=== PATIENT | female | born 1975 | race Caucasian/White ===

== ENCOUNTER 2019-01-04 21:42 | Observation (INO) | payer MEDICAID ==
[2019-01-04] MEDS ORDERED: MAG HYDROX/AL HYDROX/SIMETH SUSP 30 ML UDCUP PO ONE (22:46)
[2019-01-04] MEDS ORDERED: LIDOCAINE 2% VISCOUS SOLN 20 ML UDCUP PO ONE (22:46)
[2019-01-04] MEDS ORDERED: METOCLOPRAMIDE HCL ORAL SOLN 10 MG/10 ML UDCUP PO ONE (22:46)
[2019-01-04] MEDS ORDERED: ONDANSETRON 4 MG TAB.RAPDIS PO ONE (22:46)
--- NOTE | 2019-01-04 22:54 | ER Document Report ---
ED Medical Screen (RME) - General Chief Complaint: Abdominal Cramping Stated Complaint: ABDOMINAL PAIN Time Seen by Provider: 01/04/19 22:41 Primary Care Provider: FLORENCIO ONEAL PA-C [Primary Care Provider] - Follow up as needed Mode of Arrival: Medic Information source: Patient Notes: This 43-year-old female presents to the emergency department EMS for acute onset abdominal pain. Reports she was in the bathroom and all of a sudden her abdomen started hurting. She reports she became very nauseated did not vomit. She reports she hurt so bad they had called EMS to get her off the floor. Denies past medical history of any abdominal illnesses. Denies trauma. Denies pain with void. Denies fever vomiting. Reports last bowel movement was during this episode. It did not relieve her abdominal pain. Patient complains of epigastric pain tender to palpation. I have greeted and performed a rapid initial assessment of this patient. A comprehensive ED assessment and evaluation of the patient, analysis of test results and completion of the medical decision making process will be conducted by additional ED providers. Dictation of this chart was performed using voice recognition software; therefore, there may be some unintended grammatical errors. TRAVEL OUTSIDE OF THE [place] IN LAST 30 DAYS: No Physical Exam - Vital signs Vitals: Pulse Resp BP Pulse Ox 80 18 129/83 H 100 01/04/19 21:47 01/04/19 21:47 01/04/19 21:47 01/04/19 21:47 Course - Vital Signs Vital signs: Temp Pulse Resp BP Pulse Ox 80 18 129/83 H 100 01/04/19 21:47 01/04/19 21:47 01/04/19 21:47 01/04/19 21:47 Doctor's Discharge - Discharge Referrals: FLORENCIO ONEAL PA-C [Primary Care Provider] - Follow up as needed
--- NOTE | 2019-01-04 23:13 | ER Document Report ---
HPI - HPI Patient complains to provider of: Epigastric abdominal pain Time Seen by Provider: 01/04/19 22:41 Onset: This evening Onset/Duration: Persistent Quality of pain: Burning Severity: Moderate Pain Level: 4 Context: 43 yr old female patient, with the listed pmh, here for epigastric abdominal pain x 1 day. 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 a few episodes of nonbloody nonbilious vomiting and states she can't keep anything down. No abdominal surgeries other than a remote tubal ligation. No history of ovarian cysts, fibroids, endometriosis, or renal stones. Normal bowel movements. No UTI symptoms. No URI symptoms. No recent antibiotics or steroids. No history of diabetes or asthma. No vaginal discharge/complaints/lesions or concerns for STDs and does not want a pelvic exam. No ripping or tearing sensation. Hasn't taken anything for her symptoms. No excessive NSAID use, Tylenol use, or EtOH. No prior history of gallbladder disease, pancreatitis, ulcers, GI bleed, IBS, Crohn's, or UC. no change in color or caliber or stool. no blood thinners. no fall or trauma. denies . no other associated sx. last po intake was 830pm Exacerbated by: Food Relieved by: Remaining still Similar symptoms previously: No Recently seen / treated by doctor: No - ROS Systems Reviewed and Negative: Yes All other systems reviewed and negative - To include 10 systems, unless mentioned in the hpi. - REPRODUCTIVE Reproductive: DENIES: : Past Medical History - General Information source: Patient - Social History Smoking Status: Unknown if Ever Smoked Frequency of alcohol use: Rare Drug Abuse: None Lives with: Spouse/Significant other Family History: Reviewed & Not Pertinent Patient has suicidal ideation: No Patient has homicidal ideation: No - Past Medical History Cardiac Medical History: Reports: Hx Hypertension Endocrine Medical History: Reports: None Past Surgical History: Reports: Hx Tubal Ligation - Immunizations Immunizations up to date: Yes Vertical Provider Document - CONSTITUTIONAL Agree With Documented VS: Yes Exam Limitations: No Limitations Notes: >>>> PHYSICAL_EXAM: GENERAL_APPEARANCE: well_nourished, alert, cooperative, no_acute_distress, mild_obvious_discomfort. Pleasant, obese middle aged female, smiling, speaking in full sentences, in no sign of pain or resp distress, easily sitting up, at bedside VITALS: reviewed, see vital signs table. HEAD: normocephalic, atraumatic. no hoff signs. no raccoon eyes. EYES: PERRL, EOMI, (-)scleral icterus. NOSE: no_nasal_discharge. MOUTH: (-)decreased moisture. THROAT: no_tonsilar_inflammation/hypertrophy/exudate NECK: supple, no_neck_tenderness, full rom. full strength. no meningeal signs. BACK: no midline_back_tenderness. no step offs or deformities CHEST_WALL: no_chest_tenderness. LUNGS: no_wheezing, (-)accessory muscle use, good air exchange bilateral. HEART: normal_rate, normal_rhythm, ABDOMEN: normal_BS, soft, abdomen-diffuse, mild-mod ttp in the epigastrium and ruq, obese abd exam somewhat limited due to body habitus, (-)guarding, (- )rebound, no distension or peritoneal signs. questionably pos murphys. neg mcburneys. no cva tenderness. neg heel strike. neg obturator. neg psoas. neg rovsign. RECTAL: deferred EXTREMITIES: strength 5/5 in all_extremities, good pulses in all_extremities, no_edema, no_swelling\tenderness. full rom. normal gait. 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 SKIN: warm, dry, good_color, no_rash. no grossly visible overlying skin changes to suggest trauma NEURO: motor_intact, sensory_intact. MENTAL_STATUS: normal_affect, speech_clear, oriented_X_3, responds_appropriately to questions. - INFECTION CONTROL TRAVEL OUTSIDE OF THE [place] IN LAST 30 DAYS: No Course - Re-evaluation Re-evalutation: 01/04/19 23:12 Pt here for ruq and epigastric pain after eating chips and salsa tonight. hx of this before in the pat however it just resolved on its own. tonight it persisted more so she came in. labs neg other than a white count, mildly elevated ast, normal lactic. ucx pending. keg unremarkable per dr mckenna. triage kub and cxr neg per rad and reviewed by myself. gb us done that showed Cholelithiasis and a mildly dilated common bile duct measures 0.7 cm in diameter. No intrahepatic ductal dilation, hepatosteatosis but was otherwise neg per rad and reviewed by myself. case discussed with dr mckenna, ed attending, who advised to get a ct scan with iv only contrast of her abd/pelv which was neg per rad and reviewed by myself. pt informed of findings. advised sx care. case then discussed with infection control coordinator surg, dr aggarwal, who came down to the ed and accepted the pt to his service. please refer to his note for further details of this trainaing.t. On reexam, pt improved minimally with tx listed. remained stable. nontoxic. well appearing. serial abd exams remain benign Documentation achieved through voice recording which may lead to some occasional accidental typographical errors. Extensive efforts have been made to proof read documentation to make sure these are the least as possible. 01/05/19 06:36 Category Date Time Status EKG Documentation STAT Care 01/04/19 23:09 Completed EKG Documentation STAT Care 01/04/19 23:09 Completed NPO (ED) NOW Care 01/05/19 02:35 Ordered CHEST 2 VIEWS [RAD] Stat Exams 01/04/19 23:[address] ABD/PELVIS WITH IV ONLY [CT] Stat Exams 01/05/19 02:32 Ordered Gallbladder Ultrasound [U/S ABDOMEN LIMITED W/O DOP] [ Exams 01/05/19 00:27 Ordered US] Stat KUB/ABDOMEN (SINGLE VIEW) [RAD] Stat Exams 01/04/19 22:54 Completed CBC WITH DIFF [HEME] Stat Lab 01/04/19 22:46 Ordered COMPREHENSIVE METABOLIC PANEL [CHEM] Stat Lab 01/04/19 22:46 Ordered HCG QUALITATIVE, URINE [URIN] Stat Lab 01/04/19 22:46 Uncollected LIPASE [CHEM] Stat Lab 01/04/19 22:46 Ordered TROPONIN I [CHEM] Stat Lab 01/04/19 23:11 Ordered URINALYSIS [URIN] Stat Lab 01/04/19 22:46 Uncollected Hydromorphone HCl/Pf [Dilaudid Inj/Pf 2 mg/ml Ampule] Med 01/05/19 03:43 Once 0.5 mg IV NOW ONE Lidocaine HCl [Xylocaine 2% Viscous Soln 20 ml Udcup] Med 01/04/19 22:46 Discontinued 15 ml PO NOW ONE Mag Hydrox/Al Hydrox/Simeth [Maalox Plus Susp 30 Udcup] Med 01/04/19 22:46 Discontinued 30 ml PO NOW ONE Metoclopramide HCl [Reglan Oral Soln 10 mg/10 ml Udcup] Med 01/04/19 22:46 Discontinued 10 mg PO NOW ONE Normal Saline 1000 ml [NaCl 0.9% 1000 ml IV Soln] 1,000 Med 01/05/19 02:32 Ordered ml IV BOLUS Ondansetron [Zofran Odt 4 mg Tablet] Med 01/04/19 22:46 Discontinued 4 mg PO NOW ONE Piperacillin Sodium/Tazobactam [Zosyn Inj 3.375 gm Vial Med 01/05/19 02:32 Once ] 3.375 gm IV IVBAG (ED) ONE EKG ER ONLY [ER] Stat Oth 01/04/19 Active - Vital Signs Vital signs: Temp Pulse Resp BP Pulse Ox 80 18 129/83 H 100 01/04/19 21:47 01/04/19 21:47 01/04/19 21:47 01/04/19 21:47 01/05/19 06:37 Temp Pulse Pulse Resp BP BP Pulse Ox 01/05/19 03:36 98.5 F 82 16 117/70 100 01/04/19 21:47 80 18 129/83 H 100 - Laboratory Result Diagrams: 01/05/19 01:37 01/05/19 01:37 Laboratory results interpreted by me: 01/05/19 04:44 Labs- Entire Visit 01/04/19 01/05/19 01/05/19 23:55 01:37 01:37 WBC 14.0 H RBC 4.26 Hgb 12.6 Hct 36.9 MCV 87 MCH 29.7 MCHC 34.2 RDW 13.1 Plt Count 283 Lymph % (Auto) 17.9 [place] % (Auto) 4.4 Eos % (Auto) 0.1 Baso % (Auto) 0.2 Absolute Neuts (auto) 10.8 H Absolute Lymphs (auto) 2.5 Absolute Monos (auto) 0.6 Absolute Eos (auto) 0.0 Absolute Basos (auto) 0.0 Seg Neutrophils % 77.4 Sodium 138.4 Potassium 4.2 Chloride 105 Carbon Dioxide 23 Anion Gap 10 BUN 15 Creatinine 0.68 Est GFR ( Amer) > 60 Est GFR (MDRD) Non-Af > 60 Glucose 140 H Calcium 9.6 Total Bilirubin 0.5 Direct Bilirubin 0.4 Neonat Total Bilirubin Not Reportable Neonat Direct Bilirubin Not Reportable Neonat Indirect Bili Not Reportable AST 214 H ALT 120 Alkaline Phosphatase 74 Troponin I Total Protein 6.7 Albumin 4.1 Lipase 164.4 Urine Color YELLOW Urine Appearance CLEAR Urine pH 6.0 Ur Specific [place] 1.012 Urine Protein NEGATIVE Urine Glucose (UA) NEGATIVE Urine Ketones NEGATIVE Urine Blood NEGATIVE Urine Nitrite NEGATIVE Urine Bilirubin NEGATIVE Urine Urobilinogen NEGATIVE Ur Leukocyte Esterase NEGATIVE Urine WBC (Auto) 0 Urine RBC (Auto) 0 Urine Bacteria (Auto) TRACE Squamous Epi Cells Auto 1 Urine Mucus (Auto) RARE Urine Ascorbic Acid NEGATIVE Urine HCG, Qual NEGATIVE 01/05/19 01:37 WBC RBC Hgb Hct MCV MCH MCHC RDW Plt Count Lymph % (Auto) [place] % (Auto) Eos % (Auto) Baso % (Auto) Absolute Neuts (auto) Absolute Lymphs (auto) Absolute Monos (auto) Absolute Eos (auto) Absolute Basos (auto) Seg Neutrophils % Sodium Potassium Chloride Carbon Dioxide Anion Gap BUN Creatinine Est GFR ( Amer) Est GFR (MDRD) Non-Af Glucose Calcium Total Bilirubin Direct Bilirubin Neonat Total Bilirubin Neonat Direct Bilirubin Neonat Indirect Bili AST ALT Alkaline Phosphatase Troponin I < 0.012 Total Protein Albumin Lipase Urine Color Urine Appearance Urine pH Ur Specific [place] Urine Protein Urine Glucose (UA) Urine Ketones Urine Blood Urine Nitrite Urine Bilirubin Urine Urobilinogen Ur Leukocyte Esterase Urine WBC (Auto) Urine RBC (Auto) Urine Bacteria (Auto) Squamous Epi Cells Auto Urine Mucus (Auto) Urine Ascorbic Acid Urine HCG, Qual - Diagnostic Test Radiology reviewed: Image reviewed, Reports reviewed Radiology results interpreted by me: 01/05/19 06:37 KUB X-Ray 01/04/19 22:54 IMPRESSION: No acute findings. Chest X-Ray 01/04/19 23:10 IMPRESSION: No acute cardiopulmonary abnormalities. copyright 2011 [employer]- All Rights Reserved Abdomen Ultrasound 01/05/19 00:27 IMPRESSION: 1. Cholelithiasis. Mildly dilated common bile duct measures 0.7 cm in diameter. No intrahepatic ductal dilation. 2. Hepatic steatosis. Abdomen/Pelvis CT 01/05/19 02:32 IMPRESSION: Probable mild left hydronephrosis and hydroureter with no clear obstructing lesion at this time. - EKG Interpretation by Tn EKG shows normal: Sinus rhythm - 79 bpm, no stemi, reviewed by dr elliott Rate: Normal Rhythm: NSR When compared to previous EKG there are: No significant change Discharge - Discharge Clinical Impression: Vomiting and diarrhea, Intractable pain, Hydroureter Cholelithiasis Qualifiers: Cholelithiasis location: other site Biliary obstruction: without biliary obstruction Qualified Code(s): K80.80 - Other cholelithiasis without obstruction Intractable vomiting Qualifiers: Vomiting type: unspecified Nausea presence: with nausea Qualified Code(s): R1 1.2 - Nausea with vomiting, unspecified Leukocytosis Qualifiers: Leukocytosis type: unspecified Qualified Code(s): D72.829 - Elevated white blood cell count, unspecified Hydronephrosis Qualifiers: Hydronephrosis type: unspecified Qualified Code(s): N13.30 - Unspecified hydronephrosis Condition: Good Disposition: ADMITTED INPATIENT Admitting Provider: Surgicalist - brenden- spoke with him at 6:10am who graciously came down to the ed to accept the pt for likely lap acacia
--- NOTE | 2019-01-04 23:31 | RADIOLOGY REPORT (SQ) ---
EXAM DESCRIPTION: XR ABDOMEN 1 VIEW (KUB) COMPLETED DATE/TME: 01/04/2019 22:54 CLINICAL HISTORY: 43 years Female, abd pain COMPARISON: None. NUMBER OF VIEWS/TECHNIQUE: 1 FINDINGS: Intestinal gas pattern is within normal limits. Paucity of bowel gas. Colonic stool retention. No suspicious calcification. Grossly intact skeletal structures. IMPRESSION: No acute findings.
--- NOTE | 2019-01-04 23:58 | RADIOLOGY REPORT (SQ) ---
EXAM DESCRIPTION: XR CHEST 2 VIEWS COMPLETED DATE/TME: 01/04/2019 23:10 CLINICAL HISTORY: 43 years, Female, epigastric pain COMPARISON: None. NUMBER OF VIEWS: 2 TECHNIQUE: Two views PA and lateral the chest were obtained. LIMITATIONS: None. FINDINGS: Unremarkable cardiac and mediastinal silhouette. Heart size is normal. Lungs are clear without focal opacity, pneumothorax or pleural effusions. The visualized bones are within normal limits. IMPRESSION: No acute cardiopulmonary abnormalities. copyright 2010 [employer]- All Rights Reserved
[2019-01-05 01:47] LABS: ABSOLUTE LYMPHOCYTES (AUTO) 2.5 10^3/uL (0.5-4.7); ABSOLUTE MONOCYTES (AUTO) 0.6 10^3/uL (0.1-1.4); ABSOLUTE NEUT (AUTO) 10.8 10^3/uL (1.7-8.2); BASOPHILS % (AUTO) 0.2 % (0-2); EOSINOPHILS % (AUTO) 0.1 % (0-6); HEMATOCRIT 36.9 % (36.0-47.0); HEMOGLOBIN 12.6 g/dL (12.0-15.5); LYMPHOCYTES % (AUTO) 17.9 % (13-45); MEAN CORPUSCULAR HEMOGLOBIN 29.7 pg (27.0-33.4); MEAN CORPUSCULAR HGB CONC 34.2 g/dL (32.0-36.0); MEAN CORPUSCULAR VOLUME 87 fl (80-97); MONOCYTES % (AUTO) 4.4 % (3-13); PLATELET COUNT 283 10^3/uL (150-450); RED BLOOD COUNT 4.26 10^6/uL (3.72-5.28); RED CELL DISTRIBUTION WIDTH 13.1 % (11.5-14.0); SEGMENTED NEUTROPHILS % (AUTO) 77.4 % (42-78); TOTAL CELLS COUNTED % (AUTO) 100 %
--- NOTE | 2019-01-05 01:49 | RADIOLOGY REPORT (SQ) ---
EXAM DESCRIPTION: US ABDOMEN LIMITED COMPLETED DATE/TME: 01/05/2019 00:27 CLINICAL HISTORY: 43 years Female, epigastric ruq pain Comparison: None. LIMITATIONS: Bowel gas and body habitus artifact. FINDINGS: Gallbladder, negative sonographic Cervantes's test, mild hepatic steatosis, a 0.7-cm diameter common bile duct, no intrahepatic ductal dilation, hepatopetal patent flow of the portal vein, x-cm right kidney, partially obscured pancreas, visualized vasculature/abdominal aorta, and no significant ascites appear otherwise unremarkable. IMPRESSION: 1. Cholelithiasis. Mildly dilated common bile duct measures 0.7 cm in diameter. No intrahepatic ductal dilation. 2. Hepatic steatosis.
[2019-01-05 02:02] LABS: ALBUMIN 4.1 g/dL (3.5-5.0); ALKALINE PHOSPHATASE 74 U/L (38-126); ANION GAP 10 (5-19); ASPARTATE AMINO TRANSFERASE 214 U/L (14-36); BILIRUBIN,DIRECT 0.4 mg/dL (0.0-0.4); BILIRUBIN,TOTAL 0.5 mg/dL (0.2-1.3); BLOOD UREA NITROGEN 15 mg/dL (7-20); CALCIUM 9.6 mg/dL (8.4-10.2); CARBON DIOXIDE 23 mmol/L (22-30); CHLORIDE 105 mmol/L (98-107); GLUCOSE 140 mg/dL (75-110); POTASSIUM 4.2 mmol/L (3.6-5.0); TOTAL PROTEIN 6.7 g/dL (6.3-8.2)
[2019-01-05] MEDS ORDERED: NORMAL SALINE 1000 ML 1,000 ML IV ONE ×2 (02:32→10:09)
[2019-01-05] MEDS ORDERED: PIPERACILLIN/TAZOBACTAM 3.375 GM VIAL IV ONE (02:32)
[2019-01-05] MEDS ORDERED: HYDROMORPHONE HCL INJ/PF 2 MG/ML AMPULE IV ONE (03:43)
[2019-01-05 04:21] LABS: APPEARANCE,URINE CLEAR; BILIRUBIN,URINE NEGATIVE (NEGATIVE); COLOR,URINE YELLOW; GLUCOSE, URINE NEGATIVE (NEGATIVE); KETONES,URINE NEGATIVE (NEGATIVE); LEUKOCYTE ESTERASE,URINE NEGATIVE (NEGATIVE); NITRITE,URINE NEGATIVE (NEGATIVE); PROTEIN,URINE NEGATIVE (NEGATIVE); URINE SPECIFIC GRAVITY 1.012; UROBILINOGEN,URINE NEGATIVE mg/dL (<2.0)
--- NOTE | 2019-01-05 05:49 | RADIOLOGY REPORT (SQ) ---
CLINICAL HISTORY: EPIGASTRIC PAIN S/P EATING CHIPS/SALSA gallstone,Hepatic steatosis on U/S COMPARISON: None. TECHNIQUE: CT ABDOMEN PELVIS WITH IV CONTRAST on 01/05/2019 2:32 AM CDT This exam was performed according to our departmental dose-optimization program, which includes automated exposure control, adjustment of the mA and/or kV according to patient size and/or use of iterative reconstruction technique. FINDINGS: Lower lungs are clear. Abdomen: The liver is normal in appearance. There is no biliary dilatation. Gallbladder contains layering sludge. The pancreas and spleen are normal in appearance. Adrenal glands are normal. Calcifications within both kidneys may relate to medullary nephrocalcinosis, although some of the hypodensities may represent contrast material. There is mild left hydronephrosis and hydroureter with no clear obstructing lesions. Abdominal aorta is normal in course and caliber without aneurysm. There is no free air. There is no retroperitoneal adenopathy. Pelvis: There is no bowel obstruction. Urinary bladder is unremarkable. There is no free fluid. Uterus is normal in size. Appendix is normal. Skeleton: There are no acute osseous findings. No suspicious bony lesions. IMPRESSION: Probable mild left hydronephrosis and hydroureter with no clear obstructing lesion at this time.
--- NOTE | 2019-01-05 06:47 | PDOC H&P ---
History of Present Illness Admission Date/PCP: FLORENCIO ONEAL PA-C History of Present Illness: YOVANI ZHAO is a 43 year old femaleT presents to the emergency department EMS for acute onset abdominal pain. Reports she was in the bathroom and all of a sudden her abdomen started hurting. She reports she became very nauseated did not vomit. She reports she hurt so bad they had called EMS to get her off the floor. Denies past medical history of any abdominal illnesses. Denies trauma. Denies pain with void. Denies fever vomiting. Reports last bowel movement was during this episode. It did not relieve her abdominal pain. Patient complains of epigastric pain tender to palpation. Past Medical History Cardiac Medical History: Reports: Hypertension Pulmonary Medical History: Reports: None Denies: Asthma, Bronchitis, Chronic Obstructive Pulmonary Disease (COPD), Intubation, Pneumonia, Respiratory Failure, Sleep Apnea, Tuberculosis, Other EENT Medical History: Denies: None, Cataracts, Eyes, Ears, Nose, Throat, Other Neurological Medical History: Denies: None, Hemorrhagic CVA, Ischemic CVA, Migraine, Multiple Sclerosis, Seizures, Other Endocrine Medical History: Denies: None, Diabetes Mellitus Type 1, Diabetes Mellitus Type 2, Gestational Diabetes, Hyperthyroidism, Hypothyroidism, Obesity, Other Malignancy Medical History: Denies: None, Bone Cancer, Brain Cancer, Breast Cancer, Cervical Cancer, Colorectal Cancer, Leukemia, Liver Cancer, Lung Cancer, Lymphoma, Ovarian Cancer, Pancreatic Cancer, Renal (Kidney) Cancer, Skin Cancer, Other GI Medical History: Denies: None, Cirrhosis, Crohn's Disease, Diverticulitis, Gastroesophageal Reflux Disease, Hepatitis, Hiatal Hernia, Peptic Ulcer Disease, Ulcerative Colitis, Other Musculoskeltal Medical History: Denies: None, Arthritis, Fibromyalgia, Gout, Other Skin Medical History: Denies: None, Eczema, Psoriasis, Other Hematology: Denies: None, Anemia, Hemophilia, Sickle Cell Disease, Bleeding Tendencies, Heparin Induced Thrombocytopenia, Neutropenia, Other Infectious Medical History: Denies: None, Clostridium Difficile, Hepatitis B, Hepatitis C, HIV, Methicillin-Resistant Staph Aureus, Vancomycin-Resistant Enterococci, Other Past Surgical History Past Surgical History: Reports: Tubal Ligation Social History Lives with: Spouse/Significant other Smoking Status: Unknown if Ever Smoked Family History Family History: Reviewed & Not Pertinent Parental Family History Reviewed: Yes Children Family History Reviewed: NA Sibling(s) Family History Reviewed.: NA Review of Systems Constitutional: PRESENT: anorexia Eyes: ABSENT: as per HPI, visual disturbances, other Ears: ABSENT: as per HPI, hearing changes, other Nose, Mouth, and Throat: ABSENT: as per HPI, headache(s), mouth pain, sore throat, vertigo, other Breasts: ABSENT: as per HPI, other Cardiovascular: ABSENT: as per HPI, chest pain, dyspnea on exertion, edema, orthropnea, palpitations, other Respiratory: ABSENT: as per HPI, cough, dyspnea, hemoptysis, sputum, other Gastrointestinal: PRESENT: abdominal pain, bloating Genitourinary: ABSENT: as per HPI, difficulty urinating, dysuria, hematuria, nocturia, other Musculoskeletal: ABSENT: as per HPI, back pain, deformity, joint swelling, muscle weakness, other Integumentary: ABSENT: as per HPI, diaphoresis, erythema, lesions, pruritus, rash, wounds, other Neurological: ABSENT: as per HPI, abnormal gait, abnormal movements, abnormal speech, confusion, convulsions, dizziness, focal weakness, frequent falls, lack of coordination, memory loss, numbness, paresthesias, restless legs, syncope, tingling, tremor(s), vertigo, weakness, other Psychiatric: ABSENT: as per HPI, anxiety, depression, hallucinations, homidical ideation, suicidal ideation, other Endocrine: ABSENT: as per HPI, cold intolerance, flushing, heat intolerance, menstrual abnormalities, polydipsia, polyphagia, polyuria, other Hematologic/Lymphatic: ABSENT: as per HPI, easy bleeding, easy bruising, lymphadenopathy, other Allergic/Immunologic: ABSENT: as per HPI, seasonal rhinorrhea, other Physical Exam Vital Signs: Temp Pulse Resp BP Pulse Ox 98.5 F 82 16 117/70 100 01/05/19 03:36 01/05/19 03:36 01/05/19 03:36 01/05/19 03:36 01/05/19 03:36 Intake & Output 01/03/19 01/04/19 01/05/19 06:59 06:59 06:59 Intake Total 1000 Balance 1000 Weight 111.584 kg General appearance: PRESENT: mild distress, obese Head exam: PRESENT: normocephalic Eye exam: PRESENT: EOMI Ear exam: PRESENT: normal external ear exam Mouth exam: PRESENT: moist Neck exam: PRESENT: full ROM Respiratory exam: PRESENT: clear to auscultation [place] Cardiovascular exam: PRESENT: RRR Pulses: PRESENT: normal radial pulses, normal femoral pulses GI/Abdominal exam: PRESENT: tenderness - ruq tenderness to palpation Rectal exam: PRESENT: deferred Extremities exam: PRESENT: full ROM Musculoskeletal exam: PRESENT: full ROM Neurological exam: PRESENT: alert, awake, oriented to person, oriented to place Psychiatric exam: PRESENT: appropriate affect Skin exam: PRESENT: dry Results Laboratory Results: 01/05/19 01:37 01/05/19 01:37 01/04/19 01/05/19 01/05/19 23:55 01:37 01:37 WBC 14.0 H RBC 4.26 Hgb 12.6 Hct 36.9 MCV 87 MCH 29.7 MCHC 34.2 RDW 13.1 Plt Count 283 Seg Neutrophils % 77.4 Sodium 138.4 Potassium 4.2 Chloride 105 Carbon Dioxide 23 Anion Gap 10 BUN 15 Creatinine 0.68 Est GFR ( Amer) > 60 Glucose 140 H Calcium 9.6 Total Bilirubin 0.5 AST 214 H Alkaline Phosphatase 74 Total Protein 6.7 Albumin 4.1 Lipase 164.4 Urine Color YELLOW Urine Appearance CLEAR Urine pH 6.0 Ur Specific [place] 1.012 Urine Protein NEGATIVE Urine Glucose (UA) NEGATIVE Urine Ketones NEGATIVE Urine Blood NEGATIVE Urine Nitrite NEGATIVE Ur Leukocyte Esterase NEGATIVE Urine WBC (Auto) 0 Urine RBC (Auto) 0 01/05/19 01:37 Troponin I < 0.012 Impressions: KUB X-Ray 01/04/19 22:54 IMPRESSION: No acute findings. Chest X-Ray 01/04/19 23:10 IMPRESSION: No acute cardiopulmonary abnormalities. copyright 2011 [employer]- All Rights Reserved Abdomen Ultrasound 01/05/19 00:27 IMPRESSION: 1. Cholelithiasis. Mildly dilated common bile duct measures 0.7 cm in diameter. No intrahepatic ductal dilation. 2. Hepatic steatosis. Abdomen/Pelvis CT 01/05/19 02:32 IMPRESSION: Probable mild left hydronephrosis and hydroureter with no clear obstructing lesion at this time. Assessment & Plan - Diagnosis (1) Cholecystitis Is this a current diagnosis for this admission?: Yes (2) Cholelithiasis Qualifiers: Cholelithiasis location: other site Biliary obstruction: without biliary obstruction Qualified Code(s): K80.80 - Other cholelithiasis without obstruction - Inpatient Certification Medical Necessity: Need for Pain Control, Need for Surgery - Plan Summary Plan Summary: Laparoscopic cholecystectomy with possible cholangiograms risk of bleeding, injury to adjacent structures, hepatic ducts, hepatic vascular structures, intestines, hernia formation, retained stones, need for additional surgery including ercp has been discussed and pt agrees to proceed.
--- NOTE | 2019-01-05 09:34 | EKG REPORT ---
SEVERITY:- NORMAL ECG - SINUS RHYTHM : Confirmed by: Rianna Mena MD 05-Jan-2019 09:33:19
[2019-01-05] MEDS ORDERED: BUPIVACAINE HCL 0.25 % INJ/PF (2.5 MG/1 ML) 30 ML VIAL ONE (11:02)
[2019-01-05] MEDS ORDERED: HYDROMORPHONE HCL INJ/PF 2 MG/ML AMPULE ONE (11:04)
[2019-01-05] MEDS ORDERED: FENTANYL CITRATE INJ/PF 250 MCG/5 ML AMPULE ONE (11:04)
[2019-01-05] MEDS ORDERED: MIDAZOLAM 2 MG/2 ML INJ ONE (11:04)
[2019-01-05] MEDS ORDERED: PROPOFOL INJ 200 MG/20 ML VIAL IV ONE (11:05)
[2019-01-05] MEDS ORDERED: BUPIVACAINE HCL 0.25% /EPINEPHRINE INJ/PF 30 ML SDV ONE (11:12)
[2019-01-05] MEDS ORDERED: CEFAZOLIN INJ 1 GM VIAL ONE (11:35)
[2019-01-05] MEDS ORDERED: MORPHINE SULFATE 10 MG/ML INJ IV PRN (11:42)
[2019-01-05] MEDS ORDERED: FENTANYL CITRATE INJ/PF 100 MCG/2 ML AMPUL IV PRN ×3 (11:42)
[2019-01-05] MEDS ORDERED: MEPERIDINE HCL/PF INJ 25 MG/1 ML DISP.SYRIN IV PRN (11:42)
[2019-01-05] MEDS ORDERED: PROMETHAZINE HCL INJ 25 MG/1 ML VIAL IV PRN (11:42)
[2019-01-05] MEDS ORDERED: DIPHENHYDRAMINE HCL 50 MG/ML VIAL IV PRN (11:42)
--- NOTE | 2019-01-05 13:13 | RADIOLOGY REPORT (SQ) ---
EXAM DESCRIPTION: CHOLANGIOGRAM OPERATIVE COMPLETED DATE/TIME: 01/05/2019 1:04 pm REASON FOR STUDY: CHOLANGIOGRAM IN OR COMPARISON: None. FLUOROSCOPY TIME: 1.1 minutes. 6 series of images saved to PACS. TECHNIQUE: Cinegraphic images were obtained from an intraoperative cholangiogram. LIMITATIONS: None. FINDINGS: There is opacification of the bile ducts, cystic duct remnants and second portion of the d uodenum without evidence of fixed filling defect or significant extravasation. IMPRESSION: INTRAOPERATIVE CHOLANGIOGRAM. COMMENT: Quality ID [id number]: Final reports for procedures using fluoroscopy that document radiation exp osure indices, or exposure time and number of fluorographic images (if radiation exposure indices are not available) TECHNICAL DOCUMENTATION: JOB ID: [id number] [employer]- All Rights Reserved Reading location - IP/workstation name: [email or web address]
[2019-01-05] MEDS: FENTANYL CITRATE INJ/PF 100 MCG/2 ML AMPUL ONE ×2 (13:35→13:40)
[2019-01-05] MEDS ORDERED: ONDANSETRON HCL INJ/PF 4 MG/2 ML SDV IV PRN (13:35)
[2019-01-05] MEDS: PROMETHAZINE HCL INJ 25 MG/1 ML VIAL ONE ×2 (13:44→14:00)
--- NOTE | 2019-01-05 14:18 | Operative Report ---
Operative Report DATE OF SURGERY: 01/05/19 PREOPERATIVE DIAGNOSIS: Cholelithiasis with possible common bile duct stone POSTOPERATIVE DIAGNOSIS: Cholelithiasis with common bile duct stone OPERATION: Laparoscopic cholecystectomy with intraoperative cholangiogram SURGEON: XOCHITL ORR ANESTHESIA: GA TISSUE REMOVED OR ALTERED: Gallbladder COMPLICATIONS: None ESTIMATED BLOOD LOSS: 10 cc INTRAOPERATIVE FINDINGS: Cholelithiasis with partially obstructing common bile duct stone PROCEDURE: After adequate general anesthesia patient was placed in supine position and the abdomen prepped and draped in the usual sterile fashion. Appropriate timeout was then called. An infraumbilical incision was made in the fascia identified and grasped with Aulander clamps and divided between the 2 Siddhartha clamps. 2 sutures on each side of the Anjel clamps were placed using 0 Vicryl and the Anjel clamps were then released. The abdominal cavity was then palpated with the use of the index finger and no evidence of adhesions noted. A trocar was then inserted to the abdominal cavity and CO2 insufflated to pressure 15 mmHg. 3 other trochars were placed under direct vision 12 mm in the subxiphoid and two 5 mm in the right upper quadrant. The gallbladder was then identified and subsequently grasped with grasper and infundibular area also grasped with a grasper. Cystic artery cystic duct was then dissected and noted to be slightly dilated. A clip was then placed towards the gallbladder side and opening of the cystic duct was then made. A cholangiocatheter was then inserted and intraoperative cholangiogram obtained and noted nonobstructing common bile duct stone right at the ampulla. The cytologist Dr. Rhodes was then called on the phone and he agreed to do an ERCP on this patient later today or tomorrow. The cholangio-catheter was then pulled out and proximal cystic duct clipped with 3 hemoclips. The cystic duct was then cut between the distal clips The liver bed was then irrigated and most of the stones retrieved. No bleeding noted at the liver bed The cystic artery also clipped and divided with the use of harmonic kenney. Gallbladder was then taken of the the liver bed with the use of the harmonic kenney. The gallbladder was inadvertently opened and some small stones extruded out. The gallbladder was then placed in an endobag and pulled out through the umbilical port. The fascial defect at the infraumbilical area was then closed with a [id number] suture using 0 Vicryl and the 2 stay sutures tied over for better closure.. All the skin incisions were then closed with running subcuticular 4-0 Vicryl undyed. All the operative sites were then injected with the local anesthesia. Steri-Strips were then placed over the operative sites. Needle instrument sponge counts were all correct and estimated blood loss about 20 cc. Patient brought to the recovery room in satisfactory condition extubated.
[2019-01-05] MEDS ORDERED: GLYCOPYRROLATE 1 MG/5 ML VIAL ONE (14:22)
[2019-01-05] MEDS ORDERED: DEXAMETHASONE SOD PHOSPHATE INJ 4 MG/1 ML VIAL ONE (14:22)
[2019-01-05] MEDS ORDERED: NEOSTIGMINE METHYLSULFATE 10 MG/10 ML VIAL ONE (14:22)
[2019-01-05] MEDS ORDERED: SUCCINYLCHOLINE CHLORIDE INJ 200 MG/10 ML VIAL ONE (14:22)
[2019-01-05] MEDS ORDERED: ROCURONIUM BROMIDE INJ 50 MG/5 ML VIAL IV ONE (14:22)
[2019-01-05] MEDS ORDERED: ONDANSETRON HCL INJ/PF 4 MG/2 ML SDV ONE (14:22)
[2019-01-05] MEDS: KETOROLAC TROMETHAMINE INJ/PF 30 MG/1 ML SDV IV SCH (17:04)
[2019-01-05] MEDS: NORMAL SALINE 1000 ML 1,000 ML IV PRN (17:04)
[2019-01-05] MEDS: CEFAZOLIN SODIUM 2 GM in DEXTROSE 5%-WATER 100 ML IV SCH (17:09)
[2019-01-05] MEDS: MORPHINE SULFATE 10 MG/ML INJ IV PRN (20:34)
[2019-01-06] MEDS: KETOROLAC TROMETHAMINE INJ/PF 30 MG/1 ML SDV IV SCH ×4 (00:14→17:19)
[2019-01-06] MEDS: CEFAZOLIN SODIUM 2 GM in DEXTROSE 5%-WATER 100 ML IV SCH ×3 (02:29→17:19)
[2019-01-06] MEDS: NORMAL SALINE 1000 ML 1,000 ML IV PRN ×2 (02:29→13:16)
[2019-01-06] MEDS: MORPHINE SULFATE 10 MG/ML INJ IV PRN ×2 (09:31→21:30)
--- NOTE | 2019-01-06 12:11 | PDOC PROGRESS REPORT ---
Subjective Progress Note for:: 01/06/19 Subjective:: Complaining of back and epigastric pains Hungry Reason For Visit: CHOLELITHIASIS, S/P LAP LOGAN Physical Exam Vital Signs: Temp Pulse Resp BP Pulse Ox 98.5 F 106 H 15 134/65 H 95 01/06/19 01:12 01/06/19 01:12 01/06/19 01:12 01/06/19 01:12 01/06/19 01:12 Intake & Output 01/05/19 01/06/19 01/07/19 06:59 06:59 06:59 Intake Total 1000 4520 308 Output Total 15 Balance 1000 4505 308 Weight 111.584 kg 114.8 kg Exam: Abdomen is soft and nontender. All the incision sites appear to be clean and dry. Results Laboratory Results: 01/05/19 01:37 01/05/19 01:37 01/05/19 01:37 Troponin I < 0.012 Impressions: KUB X-Ray 01/04/19 22:54 IMPRESSION: No acute findings. Chest X-Ray 01/04/19 23:10 IMPRESSION: No acute cardiopulmonary abnormalities. copyright 2011 [employer]- All Rights Reserved Cholangiogram 01/05/19 00:00 IMPRESSION: INTRAOPERATIVE CHOLANGIOGRAM. Abdomen Ultrasound 01/05/19 00:27 IMPRESSION: 1. Cholelithiasis. Mildly dilated common bile duct measures 0.7 cm in diameter. No intrahepatic ductal dilation. 2. Hepatic steatosis. Abdomen/Pelvis CT 01/05/19 02:32 IMPRESSION: Probable mild left hydronephrosis and hydroureter with no clear obstructing lesion at this time. Assessment & Plan - Diagnosis (2) Cholelithiasis Qualifiers: Cholelithiasis location: other site Biliary obstruction: without biliary obstruction Qualified Code(s): K80.80 - Other cholelithiasis without obstruction Is this a current diagnosis for this admission?: Yes - Time Time Spent with patient: 15-24 minutes - Inpatient Certification Medical Necessity: Need for Pain Control, Need for IV Antibiotics, Need for Surgery - Plan Summary Plan Summary: Patient is for ERCP for common bile duct stone noted on cholangiogram yesterday
[2019-01-06] MEDS ORDERED: DEXTROSE 40% GEL 15 GM TUBE PO PRN ×2 (17:30)
[2019-01-06] MEDS ORDERED: DEXTROSE 50%-WATER 25 GM/50 ML DISP.SYRIN IV PRN ×2 (17:30)
[2019-01-06] MEDS ORDERED: GLUCAGON,HUMAN RECOMB 1 MG INJ SUBCUT PRN (17:30)
[2019-01-07] MEDS: KETOROLAC TROMETHAMINE INJ/PF 30 MG/1 ML SDV IV SCH ×4 (00:40→18:09)
[2019-01-07] MEDS ORDERED: CEFAZOLIN INJ 1 GM VIAL ONE (01:06)
[2019-01-07] MEDS: CEFAZOLIN SODIUM 2 GM in DEXTROSE 5%-WATER 100 ML IV SCH ×3 (02:20→18:09)
[2019-01-07] MEDS: MORPHINE SULFATE 10 MG/ML INJ IV PRN (06:23)
[2019-01-07] MEDS: NORMAL SALINE 1000 ML 1,000 ML IV PRN (09:29)
[2019-01-07] MEDS ORDERED: DEXAMETHASONE SOD PHOSPHATE INJ 4 MG/1 ML VIAL ONE (11:39)
[2019-01-07] MEDS ORDERED: ONDANSETRON HCL INJ/PF 4 MG/2 ML SDV ONE (11:39)
[2019-01-07] MEDS ORDERED: MIDAZOLAM 2 MG/2 ML INJ ONE (11:39)
[2019-01-07] MEDS ORDERED: FENTANYL CITRATE INJ/PF 100 MCG/2 ML AMPUL ONE (11:39)
[2019-01-07] MEDS ORDERED: PROPOFOL INJ 200 MG/20 ML VIAL IV ONE (11:40)
[2019-01-07] MEDS ORDERED: GLUCAGON,HUMAN RECOMB 1 MG INJ ONE (11:40)
[2019-01-07] MEDS ORDERED: LIDOCAINE 0.5% INJ-PF (5 MG/ML) 50 ML SDV ONE (11:40)
[2019-01-07] MEDS ORDERED: ONDANSETRON HCL INJ/PF 4 MG/2 ML SDV IV PRN (12:14)
[2019-01-07] MEDS ORDERED: FENTANYL CITRATE INJ/PF 100 MCG/2 ML AMPUL IV PRN ×3 (12:14)
[2019-01-07] MEDS ORDERED: MORPHINE SULFATE 10 MG/ML INJ IV PRN (12:14)
[2019-01-07] MEDS ORDERED: MEPERIDINE HCL/PF INJ 25 MG/1 ML DISP.SYRIN IV PRN (12:14)
[2019-01-07] MEDS ORDERED: PROMETHAZINE HCL INJ 25 MG/1 ML VIAL IV PRN ×2 (12:14)
[2019-01-07] MEDS ORDERED: DIPHENHYDRAMINE HCL 50 MG/ML VIAL IV PRN (12:14)
[2019-01-07] MEDS ORDERED: OXYCODONE-ACETAMINOPHEN 5-325 MG TABLET PO PRN ×2 (12:14)
[2019-01-07] MEDS ORDERED: SUCCINYLCHOLINE CHLORIDE INJ 200 MG/10 ML VIAL ONE (12:38)
--- NOTE | 2019-01-07 12:38 | PDOC CONSULTATION ---
Consultation Consult Date: 01/06/19 Provider Consulted: EVELYN MINA History of Present Illness Admission Date/PCP: 01/05/19 06:58 FLORENCIO ONEAL PA-C History of Present Illness: YOVANI ZHAO is a 43 year old female Patient was admitted a few days ago with recurrent abdominal pain. She has had 2 episodes within the last year. The current episode was the most severe and it was constant associated with nausea but no vomiting. On admission her AST was 214 and an abdominal ultrasound showed fatty liver, gallstones, and mildly dilated common bile duct. She had cholecystectomy on 01/05/2019 and there was a possible stone in the distal common bile duct hence the need for an ERCP. Currently the patient only has pain when she coughs presumably from the surgery. Past Medical History Cardiac Medical History: Reports: Hypertension Pulmonary Medical History: Reports: None Denies: Asthma, Bronchitis, Chronic Obstructive Pulmonary Disease (COPD), Intubation, Pneumonia, Respiratory Failure, Sleep Apnea, Tuberculosis, Other EENT Medical History: Denies: None, Cataracts, Eyes, Ears, Nose, Throat, Other Neurological Medical History: Denies: None, Hemorrhagic CVA, Ischemic CVA, Migraine, Multiple Sclerosis, Seizures, Other Endocrine Medical History: Reports: None Denies: Diabetes Mellitus Type 1, Diabetes Mellitus Type 2, Gestational Diabetes, Hyperthyroidism, Hypothyroidism, Obesity, Other Malignancy Medical History: Denies: None, Bone Cancer, Brain Cancer, Breast Cancer, Cervical Cancer, Colorectal Cancer, Leukemia, Liver Cancer, Lung Cancer, Lymphoma, Ovarian Cancer, Pancreatic Cancer, Renal (Kidney) Cancer, Skin Cancer, Other GI Medical History: Denies: None, Cirrhosis, Crohn's Disease, Diverticulitis, Gastroesophageal Reflux Disease, Hepatitis, Hiatal Hernia, Peptic Ulcer Disease, Ulcerative Colitis, Other Musculoskeltal Medical History: Denies: None, Arthritis, Fibromyalgia, Gout, Other Skin Medical History: Denies: None, Eczema, Psoriasis, Other Hematology: Denies: None, Anemia, Hemophilia, Sickle Cell Disease, Bleeding Tendencies, Heparin Induced Thrombocytopenia, Neutropenia, Other Infectious Medical History: Denies: None, Clostridium Difficile, Hepatitis B, Hepatitis C, HIV, Methi cillin-Resistant Staph Aureus, Vancomycin-Resistant Enterococci, Other Past Surgical History Past Surgical History: Reports: Tubal Ligation Social History Lives with: Spouse/Significant other Smoking Status: Unknown if Ever Smoked Frequency of Alcohol Use: Social Hx Recreational Drug Use: No Drugs: None Hx Prescription Drug Abuse: No - Advance Directive Resuscitation Status: Full Code Family History Family History: Reviewed & Not Pertinent Parental Family History Reviewed: No Children Family History Reviewed: NA Sibling(s) Family History Reviewed.: NA Medication/Allergy Home Medications: Fluticasone Propionate [Flonase Nasal [place] 50 Mcg/[place] 16 gm] 2 sprays NASL DAILY 01/05/19 Levonorgestrel-Ethin Estradiol [Vienva-28 Tablet] 1 each PO DAILY 01/05/19 Linaclotide [Linzess] 290 mcg PO DAILY 01/05/19 Lisinopril [Prinivil 5 mg Tablet] 5 mg PO DAILY 01/05/19 Allergies/Adverse Reactions: No Known Allergies Allergy (Unverified 01/05/19 14:57) Review of Systems All systems: reviewed and no additional remarkable complaints except as stated Physical Exam Vital Signs: Temp Pulse Resp BP Pulse Ox 98.1 F 74 17 131/69 H 99 01/07/19 11:15 01/07/19 11:15 01/07/19 11:15 01/07/19 11:15 01/07/19 11:15 Intake & Output 01/06/19 01/07/19 01/08/19 06:59 06:59 06:59 Intake Total 4520 1850 100 Output Total 15 Balance 4505 1850 100 Weight 114.8 kg 113 kg Exam: General: Patient is alert and looks well. HEENT: There is no pallor or jaundice. PERRLA. Oropharynx normal Respiratory: No chest deformity. No respiratory distress. Chest wall palpitation was unremarkable. Breath sounds were normal Cardiovascular: Heart sounds 1 and 2 normal with no murmurs. Abdominal: Not distended. Soft and nontender. Liver and spleen not palpable. No ascites demonstrated. Bowel sounds active. Rectal examination was deferred. Extremities: No edema Neurological: Alert and oriented x4. Grossly nonfocal. Normal speech Skin: No significant rash Psychological: Normal affect Results Laboratory Results: 01/05/19 01:37 01/05/19 01:37 01/05/19 01:37 Troponin I < 0.012 Impressions: KUB X-Ray 01/04/19 22:54 IMPRESSION: No acute findings. Chest X-Ray 01/04/19 23:10 IMPRESSION: No acute cardiopulmonary abnormalities. copyright 2011 [employer]- All Rights Reserved Cholangiogram 01/05/19 00:00 IMPRESSION: INTRAOPERATIVE CHOLANGIOGRAM. Abdomen Ultrasound 01/05/19 00:27 IMPRESSION: 1. Cholelithiasis. Mildly dilated common bile duct measures 0.7 cm in diameter. No intrahepatic ductal dilation. 2. Hepatic steatosis. Abdomen/Pelvis CT 01/05/19 02:32 IMPRESSION: Probable mild left hydronephrosis and hydroureter with no clear obstructing lesion at this time. Assessment & Plan - Diagnosis (1) Biliary tract imaging abnormality Is this a current diagnosis for this admission?: Yes Plan: She has an abnormal intraoperative cholangiogram suggestive of choledocholithiasis. The need for an ERCP was explained to the patient and she is in agreement. (2) Cholelithiasis Qualifiers: Cholelithiasis location: other site Biliary obstruction: without biliary obstruction Qualified Code(s): K80.80 - Other cholelithiasis without obstruction Is this a current diagnosis for this admission?: Yes
--- NOTE | 2019-01-07 12:40 | Operative Report ---
Operative Report DATE OF SURGERY: 01/07/19 Operative Report: Pre-op diagnosis: Abnormal intraoperative cholangiogram Post-op diagnosis: Common bile duct stone Surgery: ERCP with sphincterotomy and balloon stone extraction Medications: As per anesthesia Tissue removed: None Procedure: After informed consent obtained from patient, the throat was sprayed with Hurricane and conscious sedation was achieved. The ERCP endoscope was then inserted into the esophagus blindly and advanced into the stomach. The duodenum was entered and the ampulla was identified. Using the triple-lumen sphincterotomy catheter the common bile duct was freely cannulated. A cholangiogram was obtained which showed possible filling defect in the distal common bile duct. The common bile duct and intrahepatic ducts did not appear dilated. A good sized sphincterotomy was then performed using the endocut mode. The catheter was removed over the guidewire before a 9-12 mm balloon catheter was inserted. The balloon was inflated to 12 mm in the proximal common bile duct and pulled down the duct. A small yellow stone was extracted. The duct was swept one more time. A balloon occlusion cholangiogram was normal. The pancreatic duct was intentionally not cannulated. Patient tolerated procedure well. Findings Common bile duct: Small stone extracted Intrahepatic ducts: Normal Pancreatic duct: Not cannulated Plan: Follow-up LFTs OPERATION: ERCP with sphincterotomy and balloon stone extraction
[2019-01-07] MEDS ORDERED: PROMETHAZINE HCL INJ 25 MG/1 ML VIAL ONE (12:44)
--- NOTE | 2019-01-07 13:40 | PDOC PROGRESS REPORT ---
Subjective Progress Note for:: 01/07/19 Subjective:: Having some abdominal pain; patient seen earlier in the day; since that time she underwent ERCP, sphincterotomy and extraction of common bile duct stones Dr. Kevin Rhodes. Reason For Visit: CHOLELITHIASIS, S/P LAP LOGAN Physical Exam Vital Signs: Temp Pulse Resp BP Pulse Ox 98.1 F 74 17 131/69 H 99 01/07/19 11:15 01/07/19 11:15 01/07/19 11:15 01/07/19 11:15 01/07/19 11:15 Intake & Output 01/06/19 01/07/19 01/08/19 06:59 06:59 06:59 Intake Total 4520 1850 900 Output Total 15 Balance 4505 1850 900 Weight 114.8 kg 113 kg General appearance: PRESENT: no acute distress GI/Abdominal exam: PRESENT: other - Mild right upper quadrant tenderness but no peritoneal signs no rigidity. Results Laboratory Results: 01/05/19 01:37 01/05/19 01:37 01/05/19 01:37 Troponin I < 0.012 Impressions: KUB X-Ray 01/04/19 22:54 IMPRESSION: No acute findings. Chest X-Ray 01/04/19 23:10 IMPRESSION: No acute cardiopulmonary abnormalities. copyright 2011 [employer]- All Rights Reserved Cholangiogram 01/05/19 00:00 IMPRESSION: INTRAOPERATIVE CHOLANGIOGRAM. Abdomen Ultrasound 01/05/19 00:27 IMPRESSION: 1. Cholelithiasis. Mildly dilated common bile duct measures 0.7 cm in diameter. No intrahepatic ductal dilation. 2. Hepatic steatosis. Abdomen/Pelvis CT 01/05/19 02:32 IMPRESSION: Probable mild left hydronephrosis and hydroureter with no clear obstructing lesion at this time. Assessment & Plan - Diagnosis (1) Status post laparoscopic cholecystectomy Is this a current diagnosis for this admission?: Yes Plan: Impression: Patient is a day status post lap scopic cholecystectomy, operative cholangiography showing retained common duct stone; now status post ERCP, doing well no complications. Recommendations: 1. We will start diet 2. Anticipate discharge home later today or tomorrow pending clinical course. Peri dictating (2) Common bile duct stone Is this a current diagnosis for this admission?: Yes Plan: Status post ERCP, sphincterotomy, stone extraction doing well
[2019-01-07 14:56] LABS: HEMATOCRIT 34.8 % (36.0-47.0); HEMOGLOBIN 11.7 g/dL (12.0-15.5); MEAN CORPUSCULAR HGB CONC 33.7 g/dL (32.0-36.0); MEAN CORPUSCULAR VOLUME 89 fl (80-97); PLATELET COUNT 262 10^3/uL (150-450); RED CELL DISTRIBUTION WIDTH 13.2 % (11.5-14.0); WHITE BLOOD COUNT 10.2 10^3/uL (4.0-10.5)
[2019-01-07 15:10] LABS: ALBUMIN 3.6 g/dL (3.5-5.0); ALKALINE PHOSPHATASE 70 U/L (38-126); ASPARTATE AMINO TRANSFERASE 47 U/L (14-36); BILIRUBIN,DIRECT 0.1 mg/dL (0.0-0.4); BILIRUBIN,TOTAL 0.1 mg/dL (0.2-1.3); TOTAL PROTEIN 6.1 g/dL (6.3-8.2)
[2019-01-07 18:44] VITALS: BP 117/70
--- NOTE | 2019-01-08 08:16 | RADIOLOGY REPORT (SQ) ---
EXAM DESCRIPTION: ENDO CATH/BILIARY DUCT COMPLETED DATE/TIME: 01/07/2019 7:07 pm REASON FOR STUDY: ERCP COMPARISON: None. FLUOROSCOPY TIME: 3.2 minutes 7 images saved to PACS. TECHNIQUE: Intra-operative images acquired during surgical procedure to evaluate progress. NUMBER OF IMAGES: 7 LIMITATIONS: None. FINDINGS: Images reveal the patient to be undergoing ERCP. Please correlate with operative note for results. IMPRESSION: IMAGE(S) OBTAINED DURING PROCEDURE. COMMENT: Quality ID [id number]: Final reports for procedures using fluoroscopy that document radiation exp osure indices, or exposure time and number of fluorographic images (if radiation exposure indices are not available) Please consult full operative report of the attending physician for description of the procedure. TECHNICAL DOCUMENTATION: JOB ID: [id number] [employer]- All Rights Reserved Reading location - IP/workstation name: [email or web address]
--- NOTE | 2019-01-18 17:49 | PDOC DISCHARGE SUMMARY ---
General - Admit/Disc Date/PCP Admission Date/Primary Care Provider: 01/05/19 06:58 FLORENCIO ONEAL PA-C Discharge Date: 01/07/19 - Discharge Diagnosis Final Diagnosis: Cholecystitis, cholelithiasis and choledocholithiasis - Assessment Summary: Presents to the emergency department complaining of acute onset abdominal pain she was found to have gallstones by ultrasonography was admitted to the surgical service for definitive management. She is kept n.p.o. on IV fluids and was taken to the operating room on January 05, [address] Lance Oliveira and underwent laparoscopic cholecystectomy with intraoperative cholangiography. She tolerated the operation well. The IOC demonstrated retained common bile duct stone. 48 hours later she underwent ERCP sphincterotomy and stone extraction by Dr. Kevin Rhodes, dishwasher preparer. Her liver function studies remained within normal limits. By the afternoon of the second procedure, she was felt to receive maximum benefit from hospitalization was discharged home. She will follow-up with [facility] in 1 to 2 weeks, take Motrin or Tylenol as needed pain and resume her preoperative medications. - Additional Information Resuscitation Status: Full Code Discharge Diet: Regular Discharge Activity: Activity As Tolerated, Balance Activity w/Rest Referrals: [facility] [Provider Group] - 01/16/19 10:45 am Home Medications: Fluticasone Propionate [Flonase Nasal [place] 50 Mcg/[place] 16 gm] 2 sprays NASL DAILY 01/05/19 Levonorgestrel-Ethin Estradiol [Vienva-28 Tablet] 1 each PO DAILY 01/05/19 Linaclotide [Linzess] 290 mcg PO DAILY 01/05/19 Lisinopril [Prinivil 5 mg Tablet] 5 mg PO DAILY 01/05/19 History of Present Illiness History of Present Illness: YOVANI ZHAO is a 43 year old female Physical Exam Vital Signs: Temp Pulse Resp BP Pulse Ox 97.1 F 74 17 117/70 97 01/07/19 18:43 01/07/19 18:43 01/07/19 18:43 01/07/19 18:43 01/07/19 18:43 Results Laboratory Results: WBC 10.2 10^3/uL (4.0-10.5) 01/07/19 14:30 RBC 3.90 10^6/uL (3.72-5.28) 01/07/19 14:30 Hgb 11.7 g/dL (12.0-15.5) L 01/07/19 14:30 Hct 34.8 % (36.0-47.0) L 01/07/19 14:30 MCV 89 fl (80-97) 01/07/19 14:30 MCH 30.0 pg (27.0-33.4) 01/07/19 14:30 MCHC 33.7 g/dL (32.0-36.0) 01/07/19 14:30 RDW 13.2 % (11.5-14.0) 01/07/19 14:30 Plt Count 262 10^3/uL (150-450) 01/07/19 14:30 Lymph % (Auto) 17.9 % (13-45) 01/05/19 01:37 [place] % (Auto) 4.4 % (3-13) 01/05/19 01:37 Eos % (Auto) 0.1 % (0-6) 01/05/19 01:37 Baso % (Auto) 0.2 % (0-2) 01/05/19 01:37 Absolute Neuts (auto) 10.8 10^3/uL (1.7-8.2) H 01/05/19 01:37 Absolute Lymphs (auto) 2.5 10^3/uL (0.5-4.7) 01/05/19 01:37 Absolute Monos (auto) 0.6 10^3/uL (0.1-1.4) 01/05/19 01:37 Absolute Eos (auto) 0.0 10^3/uL (0.0-0.6) 01/05/19 01:37 Absolute Basos (auto) 0.0 10^3/uL (0.0-0.2) 01/05/19 01:37 Seg Neutrophils % 77.4 % (42-78) 01/05/19 01:37 Sodium 138.4 mmol/L (137-145) 01/05/19 01:37 Potassium 4.2 mmol/L (3.6-5.0) 01/05/19 01:37 Chloride 105 mmol/L (98-107) 01/05/19 01:37 Carbon Dioxide 23 mmol/L (22-30) 01/05/19 01:37 Anion Gap 10 (5-19) 01/05/19 01:37 BUN 15 mg/dL (7-20) 01/05/19 01:37 Creatinine 0.68 mg/dL (0.52-1.25) 01/05/19 01:37 Est GFR ( Amer) > 60 (>60) 01/05/19 01:37 Est GFR (MDRD) Non-Af > 60 (>60) 01/05/19 01:37 Glucose 140 mg/dL (75-110) H 01/05/19 01:37 Calcium 9.6 mg/dL (8.4-10.2) 01/05/19 01:37 Total Bilirubin 0.1 mg/dL (0.2-1.3) L 01/07/19 14:30 Direct Bilirubin 0.1 mg/dL (0.0-0.4) 01/07/19 14:30 Neonat Total Bilirubin Not Reportable 01/07/19 14:30 Neonat Direct Bilirubin Not Reportable 01/07/19 14:30 Neonat Indirect Bili Not Reportable 01/07/19 14:30 AST 47 U/L (14-36) H 01/07/19 14:30 ALT 82 U/L (<35) 01/07/19 14:30 Alkaline Phosphatase 70 U/L (38-126) 01/07/19 14:30 Troponin I < 0.012 ng/mL 01/05/19 01:37 Total Protein 6.1 g/dL (6.3-8.2) L 01/07/19 14:30 Albumin 3.6 g/dL (3.5-5.0) 01/07/19 14:30 Lipase 164.4 U/L (23-300) 01/05/19 01:37 Urine Color YELLOW 01/04/19 23:55 Urine Appearance CLEAR 01/04/19 23:55 Urine pH 6.0 (5.0-9.0) 01/04/19 23:55 Ur Specific [place] 1.012 01/04/19 23:55 Urine Protein NEGATIVE mg/dL (NEGATIVE) 01/04/19 23:55 Urine Glucose (UA) NEGATIVE mg/dL (NEGATIVE) 01/04/19 23:55 Urine Ketones NEGATIVE mg/dL (NEGATIVE) 01/04/19 23:55 Urine Blood NEGATIVE (NEGATIVE) 01/04/19 23:55 Urine Nitrite NEGATIVE (NEGATIVE) 01/04/19 23:55 Urine Bilirubin NEGATIVE (NEGATIVE) 01/04/19 23:55 Urine Urobilinogen NEGATIVE mg/dL (<2.0) 01/04/19 23:55 Ur Leukocyte Esterase NEGATIVE (NEGATIVE) 01/04/19 23:55 Urine WBC (Auto) 0 /HPF 01/04/19 23:55 Urine RBC (Auto) 0 /HPF 01/04/19 23:55 Urine Bacteria (Auto) TRACE /HPF 01/04/19 23:55 Squamous Epi Cells Auto 1 /HPF 01/04/19 23:55 Urine Mucus (Auto) RARE /LPF 01/04/19 23:55 Urine Ascorbic Acid NEGATIVE (NEGATIVE) 01/04/19 23:55 Urine HCG, Qual NEGATIVE (NEGATIVE) 01/04/19 23:55 01/05/19 01:37 Troponin I < 0.012 Impressions: KUB X-Ray 01/04/19 22:54 IMPRESSION: No acute findings. Chest X-Ray 01/04/19 23:10 IMPRESSION: No acute cardiopulmonary abnormalities. copyright 2011 [employer]- All Rights Reserved Cholangiogram 01/05/19 00:00 IMPRESSION: INTRAOPERATIVE CHOLANGIOGRAM. Abdomen Ultrasound 01/05/19 00:27 IMPRESSION: 1. Cholelithiasis. Mildly dilated common bile duct measures 0.7 cm in diameter. No intrahepatic ductal dilation. 2. Hepatic steatosis. Abdomen/Pelvis CT 01/05/19 02:32 IMPRESSION: Probable mild left hydronephrosis and hydroureter with no clear obstructing lesion at this time. Catheter Placement 01/07/19 00:00 IMPRESSION: IMAGE(S) OBTAINED DURING PROCEDURE.
== END 2019-01-07 18:58 | disposition home or self-care (01) ==
LOC: ER 21:42 → EH 01-05 06:58 → INTOOBSV 01-05 06:58 → 4W 01-05 14:38 → 3N 01-06 17:30
PROVIDERS: ADMIT Surgery; ATTEND Surgery
PROC: 0FT44ZZ Resection of Gallbladder, Percutaneous Endoscopic Approach (ICD-10-PCS; 2019-01-05)
PROC: 0F798ZZ Dilation of Common Bile Duct, Via Natural or Artificial Opening Endoscopic (ICD-10-PCS; principal; 2019-01-07 14:00)
PROC: 0FC98ZZ Extirpation of Matter from Common Bile Duct, Via Natural or Artificial Opening Endoscopic (ICD-10-PCS; 2019-01-07 14:00)
DX: K80.65 Calculus of gallbladder and bile duct with chronic cholecystitis with obstruction (principal); I10 Essential (primary) hypertension; E66.9 Obesity, unspecified; Z79.899 Other long term (current) drug therapy; Z98.51 Tubal ligation status; Z79.3 Long term (current) use of hormonal contraceptives
CPT/HCPCS: 93005; 99285; 96361; 96375; 96365; 43277; 43262; 36415 ×2; 83690; 85025; 85027; 81025; 80076; 80053; 81001; 84484; 88304 ×2; 71046; 74300; 74018; 74328; 76705; 74177; 93010; 00732; 00790; 47563; G0378 ×4; J2250 ×2; J3490 ×7; J0690 ×3; J1100 ×2; S0119; J3010 ×3; J1885 ×3; J2270 ×3; J2710; J1170; J2550; J0330 ×2; J2405 ×2; J7060 ×3; J7030 ×3; J2704 ×2; J2543; 732; 790; J1610

== ENCOUNTER → 2019-09-14 | Outpatient (CLI) | payer MEDICAID ==
[2019-09-14 12:28] LABS: ALBUMIN 4.3 g/dL (3.5-5.0); ALKALINE PHOSPHATASE 50 U/L (38-126); AMYLASE 53 U/L (30-110); ANION GAP 9 (5-19); ASPARTATE AMINO TRANSFERASE 23 U/L (14-36); BILIRUBIN,TOTAL 0.3 mg/dL (0.2-1.3); BLOOD UREA NITROGEN 10 mg/dL (7-20); CALCIUM 9.6 mg/dL (8.4-10.2); CARBON DIOXIDE 26 mmol/L (22-30); CHLORIDE 101 mmol/L (98-107); GLUCOSE 90 mg/dL (75-110); POTASSIUM 4.5 mmol/L (3.6-5.0); TOTAL PROTEIN 6.9 g/dL (6.3-8.2)
== END ==
LOC: OD 11:04
PROVIDERS: ATTEND Nurse Practitioner Family
DX: R10.12 Left upper quadrant pain (principal)
CPT/HCPCS: 36415; 80053; 82150; 83690